=== PATIENT | female | born 1990 | race Caucasian/White ===

== ENCOUNTER → 2016-09-07 | Outpatient (REF) | payer OTHER ==
[~2016-09-07] MED LIST: EFFE75CA75 PO; PRENTAB40 PO
[2016-09-07 18:18] LABS: BASO % 0.3 % (0.0-1.0); EOS # 0.2 K/mm3 (0.0-0.50); EOS % 2.7 % (0.0-3.0); LARGE UNSTAINED CELL # 0.2 K/mm3 (0.0-0.4); LARGE UNSTAINED CELL % 3.1 % (0.0-4.0); LYMPH # 2.2 K/mm3 (1.5-6.5); LYMPH % 39.4 % (24.0-44.0); MEAN CORPUSCULAR HGB CONC 32.5 g/dl (32.0-36.5); MEAN CORPUSCULAR VOLUME 95.6 fl (80.0-96.0); MONO # 0.3 K/mm3 (0.0-0.8); MONO % 6.1 % (0.0-5.0); NEUTROPHILS # 2.7 K/mm3 (1.8-7.7); NEUTROPHILS % 48.3 % (36.0-66.0); PLATELET COUNT, AUTOMATED 308 k/mm3 (150-450); RED CELL DISTRIBUTION WIDTH 11.6 % (11.5-14.5); WHITE BLOOD COUNT 5.5 K/mm3 (4.0-10.0)
[2016-09-10 10:54] LABS: HBsAg Prenatal NEGATIVE (NEGATIVE)
== END ==
LOC: M LAB REF 16:24
PROVIDERS: ATTEND Obstetrics & Gynecology
DX: Z34.01 Encounter for supervision of normal first pregnancy, first trimester (principal)

== ENCOUNTER 2016-09-09 20:09 | Emergency (ER) | payer OTHER ==
[~2016-09-09] VITALS: Ht 149.9 cm; Wt 63.5 kg
[2016-09-09] MEDS ORDERED: EFFE75CA75 PO (20:35)
[2016-09-09] MEDS ORDERED: PRENTAB40 PO (20:35)
[2016-09-09 21:34] LABS: BASO % 0.4 % (0.0-1.0); EOS # 0.2 K/mm3 (0.0-0.50); EOS % 2.8 % (0.0-3.0); LARGE UNSTAINED CELL # 0.2 K/mm3 (0.0-0.4); LARGE UNSTAINED CELL % 2.1 % (0.0-4.0); LYMPH # 3.3 K/mm3 (1.5-6.5); LYMPH % 36.4 % (24.0-44.0); MEAN CORPUSCULAR VOLUME 94.1 fl (80.0-96.0); MONO # 0.6 K/mm3 (0.0-0.8); NEUTROPHILS # 4.6 K/mm3 (1.8-7.7); NEUTROPHILS % 51.3 % (36.0-66.0); PLATELET COUNT, AUTOMATED 272 k/mm3 (150-450); RED CELL DISTRIBUTION WIDTH 11.5 % (11.5-14.5); WHITE BLOOD COUNT 8.9 K/mm3 (4.0-10.0)
[2016-09-09 22:07] LABS: ANION GAP 8 MEQ/L (8-16); BLOOD UREA NITROGEN 11 MG/DL (7-18); CALCIUM LEVEL 8.7 MG/DL (8.5-10.1); CARBON DIOXIDE LEVEL 31 MEQ/L (21-32); CHLORIDE LEVEL 104 MEQ/L (98-107); CREATININE FOR GFR 0.69 MG/DL (0.55-1.02); GLOMERULAR FILTRATION RATE > 60.0 (>60); GLUCOSE, FASTING 84 MG/DL (70-105); POTASSIUM SERUM 3.6 MEQ/L (3.5-5.1); SODIUM LEVEL 143 MEQ/L (136-145)
--- NOTE | 2016-09-09 22:30 | REPUSA ---
Clinical history: Vaginal bleeding. Findings: Real-time transabdominal ultrasound images of the pelvis were obtained. there is a intraut erine . The pole measures 6.4 mm. Mean sac diameter measures 29.6 mm. Gestation measu res 6 weeks 3 days by ultrasound measurements, but should measure 10 weeks 4 days by last menstrual p eriod. Nocardiac activity is identified at this time however. An anteverted uterus is noted, measurin g A .1 x 4.4 x 6.3 cm. The uterus demonstrates normal echotexture and echogenicity. The endometrial stripe measures 3 mm and is within normal limits. The right ovary measures 2.9 x 2.1 x 2.2 cm. The left ovary measures 2.2 x 1.6 x 2.3 cm. No adnexal masses are seen. Color Doppler flow is seen withi n both ovaries. There is no evidence of free fluid. Impression: Intrauterine gestation without cardiac activity. The findings are suspicious for a missed or in progress. Follow-up is recommended as clinically indicated. KIE
[2016-09-09 23:12] VITALS: BP 98/57
[2016-09-13] MEDS ORDERED: IBUP600T26 PO (08:24)
[2016-09-13] MEDS ORDERED: COLA100C3 PO (08:25)
[2016-09-13] MEDS ORDERED: OXYC1TAB23 PO (08:26)
== END 2016-09-09 23:14 | disposition home or self-care (01) ==
LOC: M ED 21:44
DX: O20.0 Threatened abortion (principal); Z3A.10 10 weeks gestation of pregnancy

== ENCOUNTER → 2016-09-12 | Outpatient (CLI) | payer OTHER ==
[~2016-09-12] MED LIST changes: +COLA100C3 PO; +IBUP600T26 PO; +OXYC1TAB23 PO
== END ==
LOC: M LAB 06:19
PROVIDERS: ATTEND Pediatrics
DX: Z32.00 Encounter for pregnancy test, result unknown (principal)

== ENCOUNTER → 2016-09-13 | Day surgery (SDC) | payer OTHER ==
[~2016-09-13] VITALS: Ht 149.9 cm; Wt 63.0 kg
[~2016-09-13] MED LIST changes: +DOXYCYCLINE HYCLATE 100 MG in D5W MINI-BAG PLUS 100 ML IV ONE; +LIDOCAINE 2% INJ 100 MG/5 ML SDV (FOR ANES.) As Ordered ONE; +LR 1,000 ML IV SCH; +METHYLERGONOVINE MALEATE 0.2 MG/ML VIAL (J2210) As Ordered ONE; +MIDAZOLAM INJ 2 MG/2 ML VIAL (J2250) As Ordered ONE; +ONDANSETRON 4MG/2ML VIAL (J2405) IV PRN; +PROPOFOL 200 MG/20 ML VIAL As Ordered ONE; +SILVER NITRATE APPLICATOR As Ordered ONE; +fentaNYL 100 MCG/2 ML INJECTION (J3010) As Ordered ONE; +fentaNYL 100 MCG/2 ML INJECTION (J3010) IV PRN
[2016-09-13 06:39] LABS: MEAN CORPUSCULAR HEMOGLOBIN 31.6 pg (27.0-33.0); MEAN CORPUSCULAR HGB CONC 33.3 g/dl (32.0-36.5); MEAN CORPUSCULAR VOLUME 94.9 fl (80.0-96.0); RED CELL DISTRIBUTION WIDTH 11.4 % (11.5-14.5)
[2016-09-13 10:00] VITALS: BP 107/57
--- NOTE | 2016-09-13 10:12 | RO ---
DATE OF PROCEDURE: 09/13/2016 PREOPERATIVE DIAGNOSIS: Missed , first trimester miscarriage. POSTOPERATIVE DIAGNOSIS: Missed , first trimester miscarriage. PROCEDURE PERFORMED: Suction dilation and curettage (D and C). SURGEON: DO ROMARIO MejiasOG CLINICAL LAB CLERK: EMELY Jessica IV ANESTHESIA: General, via laryngeal mask anesthesia (LMA). SPECIMENS TO PATHOLOGY: Intrauterine tissue, products of conception. ESTIMATED BLOOD LOSS: 300 mL FLUIDS: Replaced 7 mL lactated Ringer's. DRAINS: In-and-out catheter. URINE OUTPUT: 15 mL COMPLICATIONS: None. IV ANTIBIOTICS: Doxycycline 100 mg IV times one. UTEROTONICS ADMINISTERED: Methergine 0.2 mg IM times one. INTRAOPERATIVE FINDINGS: Uterus sounded to 8 cm. The tissue removed was grossly consistent with products of conception. INDICATION: 26-year-old G2 now P 0-0-2-0. She was diagnosed with a first trimester miscarriage/intrauterine embryonic demise measuring approximately 6 weeks gestation. She was offered all options of management to include expectant , medical, and surgical. She has chosen to proceed with suction D and C. DESCRIPTION OF PROCEDURE: The patient was counseled and consented on the risks, benefits, indications and alternatives of the procedure. Informed consent was obtained. She was taken to the operating room with IV running and placed on the operating table in dorsal supine position where general anesthesia was administered and secured without any difficulty. She was placed in low lithotomy position. She was prepared and draped in normal sterile fashion. A time-out was performed per protocol. A sterile catheter was placed to drain the bladder. The sterile catheter was removed. The sterile speculum was placed with good visualization of the cervix. The anterior lip of the cervix was grasped with a single-tooth tenaculum and downward traction was applied. The cervix was sequentially dilated to a Toro dilator #20. A size 8 Vacurette was placed transcervically into the intrauterine cavity and suction was applied. Suction was applied until there was minimal tissue and blood return. Multiple passes of the Vacurette was performed until minimal blood and tissue return was noted. The sharp curette was placed transcervically into the intrauterine cavity and a sharp curettage was performed throughout each quadrant of the intrauterine cavity until gritty texture was noted throughout. Minimal tissue return was noted. An additional pass of the Vacurette was performed with minimal blood and tissue return. The Vacurette was removed. 0.2 mg IM Methergine was administered to maintain hemostasis. The single-tooth tenaculum was removed. Tenaculum sites were noted to be hemostatic. All instruments were removed from the vagina. Sponge and instrument counts were correct. The patient tolerated the entire procedure well. She was transferred to the postanesthesia care unit (PACU) in good stable condition. CHRISTIAN
== END ==
LOC: M SDC 06:08
PROVIDERS: ATTEND Obstetrics & Gynecology
DX: O02.1 Missed abortion (principal); R01.1 Cardiac murmur, unspecified; J45.990 Exercise induced bronchospasm; Z79.899 Other long term (current) drug therapy
CPT/HCPCS: 36415; 59820; 85027; 86850; 86900; 86901; 88305; J2210; J2250; J3010

== ENCOUNTER → 2017-04-23 | Outpatient (REF) | payer OTHER ==
[~2017-04-23] MED LIST changes: -COLA100C3 PO; +COLA100C5 PO; -DOXYCYCLINE HYCLATE 100 MG in D5W MINI-BAG PLUS 100 ML IV ONE; +IBUP-1022 PO; -IBUP600T26 PO; -LIDOCAINE 2% INJ 100 MG/5 ML SDV (FOR ANES.) As Ordered ONE; -LR 1,000 ML IV SCH; -METHYLERGONOVINE MALEATE 0.2 MG/ML VIAL (J2210) As Ordered ONE; -MIDAZOLAM INJ 2 MG/2 ML VIAL (J2250) As Ordered ONE; -ONDANSETRON 4MG/2ML VIAL (J2405) IV PRN; -PROPOFOL 200 MG/20 ML VIAL As Ordered ONE; -SILVER NITRATE APPLICATOR As Ordered ONE; -fentaNYL 100 MCG/2 ML INJECTION (J3010) As Ordered ONE; -fentaNYL 100 MCG/2 ML INJECTION (J3010) IV PRN
== END ==
LOC: M SFHCWAGY 15:38
PROVIDERS: ATTEND Nurse Practitioner Family
DX: Z12.4 Encounter for screening for malignant neoplasm of cervix (principal)

== ENCOUNTER → 2017-05-17 | Outpatient (REF) | payer OTHER ==
[2017-05-17 17:30] LABS: PROGESTERONE 13.1 NG/ML
== END ==
LOC: M SFHCCLAY 13:14
PROVIDERS: ATTEND Family Medicine
DX: N92.0 Excessive and frequent menstruation with regular cycle (principal)

== ENCOUNTER → 2017-05-21 | Outpatient (REF) | payer OTHER | LOC: M LAB REF 16:32 | PROVIDERS: ATTEND Obstetrics & Gynecology | DX: O20.0 Threatened abortion (principal); Z3A.00 Weeks of gestation of pregnancy not specified ==

== ENCOUNTER → 2017-07-01 | Outpatient (REF) | payer OTHER ==
[2017-07-01 17:46] LABS: BASO % 0.2 % (0.0-1.0); EOS # 0.1 10^3/uL (0.0-0.50); EOS % 1.2 % (0.0-3.0); HEMATOCRIT 39.5 % (36.0-47.0); HEMOGLOBIN 13.9 g/dl (12.0-16.0); IMMATURE GRANULOCYTE % 0.4 % (0-0); LYMPH # 2.9 10^3/uL (1.5-6.5); LYMPH % 25.5 % (24.0-44.0); MEAN CORPUSCULAR HEMOGLOBIN 31.8 pg (27.0-33.0); MEAN CORPUSCULAR HGB CONC 35.2 g/dl (32.0-36.5); MEAN CORPUSCULAR VOLUME 90.4 fl (80.0-96.0); MONO # 0.9 10^3/uL (0.0-0.8); MONO % 8.2 % (0.0-5.0); NEUTROPHILS # 7.3 10^3/uL (1.8-7.7); NEUTROPHILS % 64.5 % (36.0-66.0); PLATELET COUNT, AUTOMATED 355 10^3/uL (150-450); RED BLOOD COUNT 4.37 10^6/uL (4.00-5.40); RED CELL DISTRIBUTION WIDTH 11.9 % (11.5-14.5); WHITE BLOOD COUNT 11.3 10^3/uL (4.0-10.0)
[2017-07-01 20:08] LABS: CHLAMYDIA DNA AMPLIFICATION NEGATIVE (NEGATIVE); GC DNA AMPLIFICATION NEGATIVE (NEGATIVE)
[2017-07-03 11:05] LABS: RUBELLA IgG QUALITATIVE IMMUNE (IMMUNE)
[2017-07-03 11:09] LABS: HBsAg Prenatal NEGATIVE (NEGATIVE)
[2017-07-03 11:34] LABS: HIV 1&2 SCREEN CENTAUR NEGATIVE (NEGATIVE)
[2017-07-03 11:47] LABS: HEPATITIS C VIRUS ABY INDEX < 0.0 INDEX (<0.8)
== END ==
LOC: M LAB REF 16:41
DX: Z34.81 Encounter for supervision of other normal pregnancy, first trimester (principal); Z3A.10 10 weeks gestation of pregnancy

== ENCOUNTER → 2017-08-03 | Outpatient (REF) | payer OTHER | LOC: M SFHCCLAY 12:08 | DX: R30.0 Dysuria (principal) ==

== ENCOUNTER → 2017-08-15 | Outpatient (CLI) | payer OTHER | LOC: M WHC 14:40 | DX: Z36.9 Encounter for antenatal screening, unspecified (principal); Z3A.18 18 weeks gestation of pregnancy | CPT/HCPCS: 76811 ==